=== PATIENT | male | born 1965 | race Hispanic/Latino ===

== ENCOUNTER 2017-12-02 11:01 | Observation (INO) | payer BC ==
[2017-12-02 11:20] VITALS: BMI 34.4
[2017-12-02] MEDS ORDERED: Sodium Chloride 0.9% 1,000 ML IV STA (12:03)
--- NOTE | 2017-12-02 12:07 | ED PDOC ---
HPI: General Adult Time Seen by Provider: 12/02/17 11:51 Chief Complaint (Nursing): Dizziness/Lightheaded Chief Complaint (Provider): abnormal electrolytes History Per: Patient History/Exam Limitations: no limitations Onset/Duration Of Symptoms: Days (today) Additional Complaint(s): Pt. had syncope after dizziness yesterday. He went to the PCP who saw he had afib. Pt. then went to Dr. Mari, cardiology. He stopped pt. bystolic, valsartan, and asa. He started pt. on metoprolol, chlorthalidone, and eliquis. Pt. started the meds yesterday. Here today as the parlor maid saw pt. blood work showed his sodium was low and he needed IV fluids. Pt. currently has no complaints. No current dizziness, chest pain, dyspnea, weakness, palpitations, leg pain, numbness, tingles. Past Medical History Reviewed: Nursing Documentation, Vital Signs Vital Signs: Last Vital Signs Temp 98.1 F 12/02/17 11:20 Pulse 103 H 12/02/17 11:20 Resp 17 12/02/17 11:20 BP 112/84 12/02/17 11:20 Pulse Ox 97 12/02/17 12:14 - Medical History PMH: HTN Other PMH: afib dx yesterday - Surgical History Surgical History: No Surg Hx - Family History Family History: States: Unknown Family Hx - Allergies Allergies/Adverse Reactions: Allergies Allergy/AdvReac Type Severity Reaction Status Date / Time No Known Allergies Allergy Verified 12/02/17 12:02 Review of Systems ROS Statement: Except As Marked, All Systems Reviewed And Found Negative Neurological: Positive for: Dizziness (gone now) Physical Exam - Reviewed Nursing Documentation Reviewed: Yes Vital Signs Reviewed: Yes - Physical Exam Appears: Positive for: Non-toxic, No Acute Distress Head Exam: Positive for: ATRAUMATIC, NORMAL INSPECTION, NORMOCEPHALIC Skin: Positive for: Normal Color, Warm, DRY Eye Exam: Positive for: EOMI, Normal appearance, PERRL ENT: Positive for: Normal ENT Inspection Neck: Positive for: Normal, Painless ROM Cardiovascular/Chest: Positive for: Chest Non Tender, Irregularly Irregular ( controlled rate). Negative for: Edema Respiratory: Positive for: CNT, Normal Breath Sounds Gastrointestinal/Abdominal: Positive for: Normal Exam, Soft. Negative for: Tenderness Back: Positive for: Normal Inspection. Negative for: L CVA Tenderness, R CVA Tenderness Extremity: Positive for: Normal ROM. Negative for: Tenderness, Pedal Edema Neurologic/Psych: Positive for: Alert, rehanger II-XII, Oriented. Negative for: Motor/Sensory Deficits, Aphasia, Facial Droop - Laboratory Results Result Diagrams: 12/02/17 12:20 12/02/17 12:20 Interpretation Of Abn Labs: 126 na, 85 chloride - ECG ECG: Positive for: Interpreted By Me, Viewed By Me (a) ECG Rhythm: Positive for: Atrial Fibrillation O2 Sat by Pulse Oximetry: 97 Pulse Ox Interpretation: Normal - Progress ED Course And Treament: 1353: Stable. Spoke with Dr. Mari. States he wants pt. admitted as he is an alcoholic and has afib with electrolyte abnormalities. Pt. agrees. Will give cardizem to decrease HR below 100. 1421: Spoke with Dr. Jaeger. Will admit tele obs and give further orders when pt. reaches floor. Disposition - Clinical Impression Clinical Impression: Afib, Hyponatremia, Elevated liver enzymes - Patient ED Disposition Is Patient to be Admitted: Yes Counseled Patient/Family Regarding: Studies Performed, Diagnosis - Disposition Disposition Time: 14:00 Condition: FAIR - Pt Status Changed To: Hospital Disposition Of: Observation - POA Present On Arrival: None
[2017-12-02 12:32] LABS: BASO % 0.6 % (0.0-2.0); EOS # 0.1 K/uL (0.0-0.7); EOS % 0.8 % (0.0-4.0); HEMOGLOBIN 14.7 g/dL (12.0-18.0); LYMPH # 0.7 K/uL (1.0-4.3); MEAN CELL VOLUME 99.3 fl (80.0-94.0); MEAN CORPUSCULAR HGB CONC 35.2 g/dL (33.0-37.0); MEAN PLATELET VOLUME 9.2 fl (7.2-11.7); MONO # 0.6 K/uL (0.0-0.8); MONO % 8.7 % (0.0-10.0); NEUT # 5.3 K/uL (1.8-7.0); NEUT % 78.9 % (50.0-75.0); NRBC % 0.1 % (0.0-0.0); RBC 4.2 Mil/uL (4.40-5.90); RED CELL DISTRIBUTION WIDTH 12.6 % (11.5-14.5); WHITE BLOOD COUNT 6.8 K/uL (4.8-10.8)
[2017-12-02 12:43] LABS: INR 1.2; PROTHROMBIN TIME 13.5 Seconds (9.8-13.1)
[2017-12-02 12:44] LABS: ALB/GLOB RATIO 1.2 (1.0-2.1); ALBUMIN 4.7 g/dL (3.5-5.0); ALT/SGPT 183 U/L (21-72); AST/SGOT 398 U/L (17-59); BLOOD UREA NITROGEN 16 mg/dl (9-20); CALCIUM 10.2 mg/dL (8.4-10.2); GFR AFRICAN-AMERICAN > 60; GFR NON-AFRICAN AMERICAN > 60
[2017-12-02 12:46] LABS: PARTIAL THROMBOPLASTIN TIME 37.3 Seconds
[2017-12-02] MEDS ORDERED: Multivitamin (MVI) 10 ML, Folic Acid 1 MG, Thiamine 100 MG in Dextrose 5%/0.45% NS 1,00... IV ONE (13:54)
--- NOTE | 2017-12-02 15:21 | CARD ---
APPROVED REPORT Date of service: 12/02/2017 EKG Measurement Heart [id number] <Conclusion> Atrial fibrillation with rapid ventricular response Nonspecific ST abnormality Abnormal ECG
--- NOTE | 2017-12-02 16:38 | CP.PCM.HP ---
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 HE HAS A HISTORY OF HYPERTENSION AND CHRONIC ALCOHOL USE. Present on Admission - Present on Admission Any Indicators Present on Admission: Yes Past Patient History - Past Social History Smoking Status: Never Smoked - CARDIAC Hx Hypertension: Yes - PSYCHIATRIC Hx Substance Use: No - SURGICAL HISTORY Hx Surgeries: No Meds Allergies/Adverse Reactions: Allergies Allergy/AdvReac Type Severity Reaction Status Date / Time No Known Allergies Allergy Verified 12/02/17 12:02 Physical Exam - Constitutional Appears: No Acute Distress - Head Exam Head Exam: ATRAUMATIC, NORMAL INSPECTION, NORMOCEPHALIC - Eye Exam Eye Exam: EOMI, Normal appearance, PERRL Pupil Exam: NORMAL ACCOMODATION, PERRL - ENT Exam ENT Exam: Mucous Membranes Moist, Normal Exam - Neck Exam Neck exam: Positive for: Normal Inspection - Respiratory Exam Respiratory Exam: Clear to Auscultation Bilateral, NORMAL BREATHING PATTERN - Cardiovascular Exam Cardiovascular Exam: Irregular Rhythm - GI/Abdominal Exam GI & Abdominal Exam: Normal Bowel Sounds, Soft. absent: Tenderness - Rectal Exam Rectal Exam: NORMAL INSPECTION - Extremities Exam Extremities exam: Positive for: normal inspection - Back Exam Back exam: NORMAL INSPECTION - Neurological Exam Neurological exam: Alert, CN II-XII Intact, Normal Gait, Oriented x3, Reflexes Normal - Psychiatric Exam Psychiatric exam: Normal Affect, Normal Mood - Skin Skin Exam: Dry, Intact, Normal Color, Warm Results - Vital Signs Recent Vital Signs: Last Vital Signs Temp 98.1 F 12/02/17 11:20 Pulse 104 H 12/02/17 14:33 Resp 19 12/02/17 14:33 BP 147/89 12/02/17 14:33 Pulse Ox 98 12/02/17 14:33 - Labs Result Diagrams: 12/02/17 12:20 12/02/17 12:20 Labs: Laboratory Results - last 24 hr 12/02/17 12/02/17 12/02/17 12:00 12:20 12:20 WBC 6.8 RBC 4.20 L Hgb 14.7 Hct 41.7 MCV 99.3 H MCH 35.0 H MCHC 35.2 RDW 12.6 Plt Count 174 MPV 9.2 Neut % (Auto) 78.9 H Lymph % (Auto) 11.[address] [place] % (Auto) 8.7 Eos % (Auto) 0.8 Baso % (Auto) 0.6 Neut # (Auto) 5.3 Lymph # (Auto) 0.[address] [place] # (Auto) 0.6 Eos # (Auto) 0.1 Baso # (Auto) 0.0 PT INR APTT Sodium 126 L Potassium 4.6 Chloride 85 L Carbon Dioxide 26 Anion Gap 20 BUN 16 Creatinine 1.2 Est GFR ( Amer) > 60 Est GFR (Non-Af Amer) > 60 Random Glucose 98 Calcium 10.2 Phosphorus 3.7 Magnesium 1.2 L Total Bilirubin 2.1 H AST 398 H ALT 183 H Alkaline Phosphatase 119 Troponin I < 0.0120 Total Protein 8.6 H Albumin 4.7 Globulin 3.9 Albumin/Globulin Ratio 1.2 Alcohol, Quantitative < 10 Cancelled 12/02/17 12:20 WBC RBC Hgb Hct MCV MCH MCHC RDW Plt Count MPV Neut % (Auto) Lymph % (Auto) [place] % (Auto) Eos % (Auto) Baso % (Auto) Neut # (Auto) Lymph # (Auto) [place] # (Auto) Eos # (Auto) Baso # (Auto) PT 13.5 H INR 1.2 APTT 37.3 Sodium Potassium Chloride Carbon Dioxide Anion Gap BUN Creatinine Est GFR ( Amer) Est GFR (Non-Af Amer) Random Glucose Calcium Phosphorus Magnesium Total Bilirubin AST ALT Alkaline Phosphatase Troponin I Total Protein Albumin Globulin Albumin/Globulin Ratio Alcohol, Quantitative Assessment & Plan - Assessment and Plan (Free Text) Assessment: NEW ONSET ATRIAL FIBRILLATION R/O ACS PROBABLE ALCOHOLIC LIVER DISEASE HYPERTENSION HYPONATREMIA Plan: CONTINUE RX ORDERED CARDIOLOGY EVAL - Date & Time Date: 12/02/17 Time: 16:42
[2017-12-02] MEDS: Metoprolol Succinate 50 mg XL Tab PO SCH (17:25)
[2017-12-02 18:14] LABS: T4 9.12 ug/dl (5.5-11.0)
[2017-12-02 21:22] LABS: HEPATITIS B SURFACE AG Negative (NEGATIVE)
[2017-12-02 21:27] LABS: HEPATITIS A IGM NEGATIVE (NEGATIVE); HEPATITIS B CORE AB NEGATIVE (NEGATIVE)
[2017-12-02 21:39] LABS: HEPATITIS C ANTIBODY NEGATIVE (NEGATIVE)
[2017-12-03 05:37] LABS: BASO # 0.1 K/uL (0.0-0.2); BASO % 1.3 % (0.0-2.0); EOS # 0.2 K/uL (0.0-0.7); EOS % 3.1 % (0.0-4.0); HEMOGLOBIN 13.4 g/dL (12.0-18.0); LYMPH % 19.1 % (20.0-40.0); MEAN CELL VOLUME 99.8 fl (80.0-94.0); MEAN CORPUSCULAR HEMOGLOBIN 35.2 pg (27.0-31.0); MEAN CORPUSCULAR HGB CONC 35.2 g/dL (33.0-37.0); MEAN PLATELET VOLUME 9.5 fl (7.2-11.7); MONO # 0.5 K/uL (0.0-0.8); MONO % 9.8 % (0.0-10.0); NEUT # 3.4 K/uL (1.8-7.0); NEUT % 66.7 % (50.0-75.0); RBC 3.8 Mil/uL (4.40-5.90); RED CELL DISTRIBUTION WIDTH 12.6 % (11.5-14.5); WHITE BLOOD COUNT 5.1 K/uL (4.8-10.8)
[2017-12-03 05:49] LABS: BLOOD UREA NITROGEN 14 mg/dl (9-20); CALCIUM 9.5 mg/dL (8.4-10.2); GFR AFRICAN-AMERICAN > 60; GFR NON-AFRICAN AMERICAN > 60; HDL CHOLESTEROL 54 MG/DL (30-70)
[2017-12-03 06:00] LABS: LDL CHOLESTEROL 106 mg/dL (0-129)
--- NOTE | 2017-12-03 09:33 | CP.PCM.PN ---
Subjective - Date & Time of Evaluation Date of Evaluation: 12/03/17 Time of Evaluation: 09:36 - Subjective Subjective: C/O ABOUT BEING IN HOSPITA AND HAVING HIS VITALS CHECKED WANTS TO GO HOME AND CONTINUE RX OUTPT HE IS ADVISED TO STAY IN HOSPITAL TO BETTER TREAT ATRIAL FIB AND IMPROVE HYPONATREMIA AND HEPATIC FUNCTION HE UNDERSTANDS THAT HE CAN SIGN OUT AMA IF HE DOES NOT WANT TO STAY IN HOSPITAL Objective - Vital Signs/Intake and Output Vital Signs (last 24 hours): Temp Pulse Resp BP Pulse Ox 97.9 F 104 H 20 116/79 98 12/03/17 08:00 12/03/17 08:00 12/03/17 08:00 12/03/17 08:00 12/03/17 08:00 - Medications Medications: Current Medications Apixaban (Eliquis) 5 mg PO BID [facility] PRN Reason: Protocol Last Admin: 12/02/17 17:25 Dose: 5 mg Aspirin (Aspirin Chewable) 81 mg PO DAILY [facility] Metoprolol Succinate (Toprol Xl) 50 mg PO BID [facility] Last Admin: 12/02/17 17:25 Dose: 50 mg Trazodone HCl (Desyrel) 100 mg PO HS [facility] Last Admin: 12/02/17 22:08 Dose: 100 mg - Labs Labs: 12/03/17 04:20 12/03/17 04:20 PT 13.5 Seconds (9.8-13.1) H 12/02/17 12:20 INR 1.2 12/02/17 12:20 APTT 37.3 Seconds 12/02/17 12:20 - Constitutional Appears: No Acute Distress - Head Exam Head Exam: ATRAUMATIC, NORMAL INSPECTION, NORMOCEPHALIC - Eye Exam Eye Exam: EOMI, Normal appearance, PERRL Pupil Exam: NORMAL ACCOMODATION, PERRL - ENT Exam ENT Exam: Mucous Membranes Moist, Normal Exam - Neck Exam Neck Exam: Full ROM, Normal Inspection. absent: Lymphadenopathy - Respiratory Exam Respiratory Exam: Clear to Ausculation Bilateral, NORMAL BREATHING PATTERN - Cardiovascular Exam Cardiovascular Exam: Irregular Rhythm, +S1, +S2. absent: Murmur - GI/Abdominal Exam GI & Abdominal Exam: Soft, Normal Bowel Sounds. absent: Tenderness - Rectal Exam Rectal Exam: NORMAL INSPECTION - Extremities Exam Extremities Exam: Full ROM, Normal Capillary Refill, Normal Inspection. absent : Joint Swelling, Pedal Edema - Back Exam Back Exam: NORMAL INSPECTION - Neurological Exam Neurological Exam: Alert, Awake, CN II-XII Intact, Normal Gait, Oriented x3 - Psychiatric Exam Psychiatric exam: Normal Affect, Normal Mood - Skin Skin Exam: Dry, Intact, Normal Color, Warm Assessment and Plan - Assessment and Plan (Free Text) Assessment: NEW ONSET ATRIAL FIBRILLATION--IMPROVING HYPONATREMIA PROBABLE ALCOHOLIC LIVER DISEASE Plan: CARDIAC EVALUATION IV NACL ANTICOAGULATION AND BETA KITTY THERAPY ADVISED TO STAY IN HOSPITAL UNTIL MEDICALLY CLEARED
[2017-12-03] MEDS ORDERED: Sodium Chloride 0.9% 1,000 ML IV SCH (09:45)
--- NOTE | 2017-12-03 10:51 | CP.PCM.CON ---
History of Present Illness - History of Present Illness History of Present Illness: This 52-year-old man came to the hospital after he was instructed by his spinner tender who had seen him the day before for atrial fibrillation. The patient has a long history of hypertension and has taken antihypertensives for approximately 13 years. He has gained approximately 60 pounds over this time and now weighs 240 pounds. He has never been a smoker or diabetic and had never experienced any palpitations or chest pains. On the day of his hospitalization the patient gives history of having fainted at work went to see his primary care doctor who referred him promptly to a spinner tender. The spinner tender ordered a beta blockade and told him that he had atrial fibrillation. The patient denies any palpitations or sudden shortness of breath indicating congestive heart failure. Physical examination shows an overweight middle aged man who is alert awake and coherent. Sitting up in a chair eating his breakfast. Can carry on a conversation. Telemetry shows his average heart rate to be 110-120 bpm. His jugular venous pressure was not elevated and there was no edema over his lower extremity. The pedal pulses were well felt. His blood pressure was 122/74 mmHg. His extremities were warm and his nailbeds were pink. There was no central or peripheral cyanosis. There was no clubbing. The apex was not palpable. The first and second heart sounds are normal there was no murmur or gallop. There were no rales. His abdomen was soft and liver and spleen are not palpable. His electric cardiac gram showed atrial flutter fibrillation with a heart rate which was fast. There were no Q waves. His electric cardiac gram this morning continues to show atrial flutter fibrillation. An echocardiogram off 10 this morning shows a preserved left ventricular systolic function with a mild tricuspid regurgitation. His calculated pulmonary artery systolic pressure was 32 mmHg. His left atrial size was mildly enlarged. His lab data shows a sodium level of 126 mg/L at admission which after infusion of normal saline is 128 mg/ L this morning. His BUN/creatinine were normal. His liver enzymes are significantly elevated. The patient tells me that his ferritin level drawn the day before at his primary care physician's office exceeded 2500 g. Impression: Recent onset of atrial fibrillation with a syncopal episode. Hyponatremia. Long history of hypertension and exogenous obesity with possible obstructive sleep apnea. (Possible hemochromatosis) I have discussed his case with the spinner tender who saw him on the day of admission. The patient has been started on intravenous normal saline with gradual resolution of his hyponatremia. I have increased his dose of metoprolol in an attempt to slow his heart rate down. His spinner tender tells me that he suspects possible chronic ETOH abuse as the reason for his abnormal liver tests and atrial fibrillation. The patient is scheduled to undergo a sleep study. Past Patient History - Past Medical History & Family History Past Medical History?: Yes - Past Social History Smoking Status: Never Smoked - CARDIAC Hx Cardiac Disorders: Yes - MUSCULOSKELETAL/RHEUMATOLOGICAL Hx Falls: No - PSYCHIATRIC Hx Substance Use: No - SURGICAL HISTORY Hx Surgeries: No Meds Allergies/Adverse Reactions: Allergies Allergy/AdvReac Type Severity Reaction Status Date / Time No Known Allergies Allergy Verified 12/02/17 12:02 - Medications Medications: Current Medications Apixaban (Eliquis) 5 mg PO BID JONY PRN Reason: Protocol Last Admin: 12/03/17 10:19 Dose: 5 mg Aspirin (Aspirin Chewable) 81 mg PO DAILY JONY Sodium Chloride (Sodium Chloride 0.9%) 1,000 mls @ 40 mls/hr IV .Q24H JONY Stop: 12/04/17 09:38 Last Admin: 12/03/17 10:23 Dose: 40 mls/hr Metoprolol Tartrate (Lopressor) 75 mg PO Q12 JONY Trazodone HCl (Desyrel) 100 mg PO HS JONY Last Admin: 12/02/17 22:08 Dose: 100 mg Zolpidem Tartrate (Ambien) 5 mg PO HS PRN PRN Reason: Insomnia Results - Vital Signs Recent Vital Signs: Last Vital Signs Temp 97.9 F 12/03/17 08:00 Pulse 104 H 12/03/17 08:00 Resp 20 12/03/17 08:00 BP 116/79 12/03/17 08:00 Pulse Ox 98 12/03/17 08:00 - Labs Result Diagrams: 12/03/17 04:20 12/03/17 04:20 Labs: Laboratory Results - last 24 hr 12/02/17 12/02/17 12/02/17 12:00 12:20 12:20 WBC 6.8 RBC 4.20 L Hgb 14.7 Hct 41.7 MCV 99.3 H MCH 35.0 H MCHC 35.2 RDW 12.6 Plt Count 174 MPV 9.2 Neut % (Auto) 78.9 H Lymph % (Auto) 11.0 L [place] % (Auto) 8.7 Eos % (Auto) 0.8 Baso % (Auto) 0.6 Neut # (Auto) 5.3 Lymph # (Auto) 0.7 L [place] # (Auto) 0.6 Eos # (Auto) 0.1 Baso # (Auto) 0.0 PT INR APTT Sodium 126 L Potassium 4.6 Chloride 85 L Carbon Dioxide 26 Anion Gap 20 BUN 16 Creatinine 1.2 Est GFR ( Amer) > 60 Est GFR (Non-Af Amer) > 60 Random Glucose 98 Calcium 10.2 Phosphorus 3.7 Magnesium 1.2 L Total Bilirubin 2.1 H AST 398 H ALT 183 H Alkaline Phosphatase 119 Troponin I < 0.0120 Total Protein 8.6 H Albumin 4.7 Globulin 3.9 Albumin/Globulin Ratio 1.2 Triglycerides Cholesterol LDL Cholesterol Direct HDL Cholesterol Thyroxine (T4) TSH 3rd Generation Alcohol, Quantitative < 10 Cancelled Hepatitis A IgM Ab Hep Bs Antigen Hep B Core IgM Ab Hepatitis C Antibody 12/02/17 12/02/17 12/02/17 12:20 17:22 17:22 WBC RBC Hgb Hct MCV MCH MCHC RDW Plt Count MPV Neut % (Auto) Lymph % (Auto) [place] % (Auto) Eos % (Auto) Baso % (Auto) Neut # (Auto) Lymph # (Auto) [place] # (Auto) Eos # (Auto) Baso # (Auto) PT 13.5 H INR 1.2 APTT 37.3 Sodium Potassium Chloride Carbon Dioxide Anion Gap BUN Creatinine Est GFR ( Amer) Est GFR (Non-Af Amer) Random Glucose Calcium Phosphorus Magnesium Total Bilirubin AST ALT Alkaline Phosphatase Troponin I < 0.0120 Total Protein Albumin Globulin Albumin/Globulin Ratio Triglycerides Cholesterol LDL Cholesterol Direct HDL Cholesterol Thyroxine (T4) 9.12 TSH 3rd Generation 4.09 Alcohol, Quantitative Hepatitis A IgM Ab Negative Hep Bs Antigen Negative Hep B Core IgM Ab Negative Hepatitis C Antibody Negative 12/03/17 12/03/17 04:20 04:20 WBC 5.1 RBC 3.80 L Hgb 13.4 Hct 38.0 MCV 99.8 H MCH 35.2 H MCHC 35.2 RDW 12.6 Plt Count 150 MPV 9.5 Neut % (Auto) 66.7 Lymph % (Auto) 19.1 L [place] % (Auto) 9.8 Eos % (Auto) 3.1 Baso % (Auto) 1.3 Neut # (Auto) 3.4 Lymph # (Auto) 1.0 [place] # (Auto) 0.5 Eos # (Auto) 0.2 Baso # (Auto) 0.1 PT INR APTT Sodium 128 L Potassium 4.0 Chloride 90 L Carbon Dioxide 26 Anion Gap 16 BUN 14 Creatinine 1.0 Est GFR ( Amer) > 60 Est GFR (Non-Af Amer) > 60 Random Glucose 87 Calcium 9.5 Phosphorus Magnesium Total Bilirubin AST ALT Alkaline Phosphatase Troponin I Total Protein Albumin Globulin Albumin/Globulin Ratio Triglycerides 95 Cholesterol 196 LDL Cholesterol Direct 106 HDL Cholesterol 54 Thyroxine (T4) TSH 3rd Generation Alcohol, Quantitative Hepatitis A IgM Ab Hep Bs Antigen Hep B Core IgM Ab Hepatitis C Antibody
[2017-12-03] MEDS: Metoprolol Succinate 50 mg XL Tab PO SCH (14:50)
--- NOTE | 2017-12-03 17:02 | CARD ---
APPROVED REPORT Date of service: 12/03/2017 EKG Measurement Heart [id number] <Conclusion> Atrial fibrillation with rapid ventricular response Abnormal ECG
[2017-12-03 23:52] VITALS: RESP 18
[2017-12-04 07:07] LABS: ALB/GLOB RATIO 1.2 (1.0-2.1); ALBUMIN 4.1 g/dL (3.5-5.0); ALT/SGPT 221 U/L (21-72); AST/SGOT 344 U/L (17-59); BILIRUBIN,DIRECT 0.7 mg/ml (0.0-0.4); BLOOD UREA NITROGEN 16 mg/dl (9-20); CALCIUM 9.4 mg/dL (8.4-10.2); GFR AFRICAN-AMERICAN > 60; GFR NON-AFRICAN AMERICAN > 60
--- NOTE | 2017-12-04 08:08 | CARD ---
APPROVED REPORT Date of service: 12/03/2017 EXAM: Two-dimensional and M-mode echocardiogram with Doppler and color Doppler. Other Information Quality : GoodRhythm : Tachycardia INDICATION Atrial Fibrillation 2D DIMENSIONS IVSd1.00 (0.7-1.1cm)LVDd3.94 (3.9-5.9cm) LVOT Diameter2.27 (1.8-2.4cm)PWd0.93 (0.7-1.1cm) IVSs1.22 (0.8-1.2cm)LVDs3.15 (2.5-4.0cm) FS (%) 19.9 %PWs1.53 (0.8-1.2cm) M-Mode DIMENSIONS Left Atrium (MM)4.76 (2.5-4.0cm)IVSd0.79 (0.7-1.1cm) Aortic Root3.71 (2.2-3.7cm)LVDd5.76 (4.0-5.6cm) Aortic Cusp Exc.2.25 (1.5-2.0cm)PWd0.89 (0.7-1.1cm) IVSs1.36 cmFS (%) 49 % LVDs2.94 (2.0-3.8cm)PWs1.69 cm Mitral Valve E/A ratio0.0 TDI E/Lateral E'0.0E/Medial E'0.0 Tricuspid Valve TR Peak [id number] [id number] Peak Gr.22mmHg [id number] LEFT VENTRICLE The left ventricle is normal size. There is normal left ventricular wall thickness. LV systolic function was normal. The Ejection Fraction is 65-70%. There is normal LV segmental wall motion. LV diastolic function could not be assesed due to A Fib. RIGHT VENTRICLE RV appeared mildly enlarged. The right ventricular systolic function is normal. ATRIA The left atrium size is normal. The right atrium is mildly dilated. AORTIC VALVE The aortic valve is normal in structure. No aortic regurgitation is present. There is no aortic valvular stenosis. MITRAL VALVE The mitral valve is normal in structure. There is no evidence of mitral valve prolapse. There is no mitral valve stenosis. There is no mitral valve regurgitation noted. TRICUSPID VALVE The tricuspid valve is normal in structure. Mild TR RV systolic pressure was 32 mm Hg PULMONIC VALVE The pulmonary valve is normal in structure. There is no pulmonic valvular regurgitation. GREAT VESSELS The aortic root is normal in size. The IVC was not visualized. PERICARDIAL EFFUSION There is a small circumferential pericardial effusion. <Conclusion> Patient had atrial fibrillation during this study. The left ventricle is normal size. There is normal left ventricular wall thickness. There is normal LV segmental wall motion. LV systolic function was normal. The Ejection Fraction is 65-70%. RV appeared mildly enlarged. The right atrium is mildly dilated. RV systolic pressure was 32 mm Hg
[2017-12-04 08:14] VITALS: BP 119/78; PULSE 94; TEMP 97.3; O2SAT 98
--- NOTE | 2017-12-04 09:25 | CP.PCM.PN ---
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 D/C for follow up Objective - Vital Signs/Intake and Output Vital Signs (last 24 hours): Temp Pulse Resp BP Pulse Ox 97.3 F L 94 H 18 119/78 98 12/04/17 08:13 12/04/17 08:13 12/04/17 08:13 12/04/17 08:13 12/04/17 08:13 - Medications Medications: Current Medications Apixaban (Eliquis) 5 mg PO BID JONY PRN Reason: Protocol Last Admin: 12/03/17 17:48 Dose: 5 mg Aspirin (Aspirin Chewable) 81 mg PO DAILY JONY Last Admin: 12/03/17 12:02 Dose: Not Given Metoprolol Tartrate (Lopressor) 75 mg PO Q12 JONY Last Admin: 12/03/17 21:43 Dose: 75 mg Trazodone HCl (Desyrel) 100 mg PO HS JONY Last Admin: 12/03/17 21:24 Dose: 100 mg Zolpidem Tartrate (Ambien) 5 mg PO HS PRN PRN Reason: Insomnia Last Admin: 12/04/17 00:08 Dose: 5 mg - Labs Labs: 12/03/17 04:20 12/04/17 05:35 PT 13.5 Seconds (9.8-13.1) H 12/02/17 12:20 INR 1.2 12/02/17 12:20 APTT 37.3 Seconds 12/02/17 12:20
--- NOTE | 2017-12-04 09:31 | CP.PCM.DIS ---
Provider - Provider Date of Admission: 12/02/17 14:20 Attending physician: Glenn Jaeger MD Time Spent in preparation of Discharge (in minutes): 35 Diagnosis - Discharge Diagnosis (1) Chronic alcohol use Status: Acute (2) Hypertension Status: Acute (3) Afib Status: Acute (4) Elevated liver enzymes Status: Acute (5) Hyponatremia Status: Acute Hospital Course - Lab Results Lab Results: Most Recent Lab Values WBC 5.1 K/uL (4.8-10.8) 12/03/17 04:20 RBC 3.80 Mil/uL (4.40-5.90) L 12/03/17 04:20 Hgb 13.4 g/dL (12.0-18.0) 12/03/17 04:20 Hct 38.0 % (35.0-51.0) 12/03/17 04:20 MCV 99.8 fl (80.0-94.0) H 12/03/17 04:20 MCH 35.2 pg (27.0-31.0) H 12/03/17 04:20 MCHC 35.2 g/dL (33.0-37.0) 12/03/17 04:20 RDW 12.6 % (11.5-14.5) 12/03/17 04:20 Plt Count 150 K/uL (130-400) 12/03/17 04:20 MPV 9.5 fl (7.2-11.7) 12/03/17 04:20 Neut % (Auto) 66.7 % (50.0-75.0) 12/03/17 04:20 Lymph % (Auto) 19.1 % (20.0-40.0) L 12/03/17 04:20 [place] % (Auto) 9.8 % (0.0-10.0) 12/03/17 04:20 Eos % (Auto) 3.1 % (0.0-4.0) 12/03/17 04:20 Baso % (Auto) 1.3 % (0.0-2.0) 12/03/17 04:20 Neut # (Auto) 3.4 K/uL (1.8-7.0) 12/03/17 04:20 Lymph # (Auto) 1.0 K/uL (1.0-4.3) 12/03/17 04:20 [place] # (Auto) 0.5 K/uL (0.0-0.8) 12/03/17 04:20 Eos # (Auto) 0.2 K/uL (0.0-0.7) 12/03/17 04:20 Baso # (Auto) 0.1 K/uL (0.0-0.2) 12/03/17 04:20 PT 13.5 Seconds (9.8-13.1) H 12/02/17 12:20 INR 1.2 12/02/17 12:20 APTT 37.3 Seconds 12/02/17 12:20 Sodium 131 mmol/l (132-148) L 12/04/17 05:35 Potassium 4.4 MMOL/L (3.6-5.0) 12/04/17 05:35 Chloride 92 mmol/L (98-107) L 12/04/17 05:35 Carbon Dioxide 30 mmol/L (22-30) 12/04/17 05:35 Anion Gap 13 (10-20) 12/04/17 05:35 BUN 16 mg/dl (9-20) 12/04/17 05:35 Creatinine 1.0 mg/dl (0.8-1.5) 12/04/17 05:35 Est GFR ( Amer) > 60 12/04/17 05:35 Est GFR (Non-Af Amer) > 60 12/04/17 05:35 Random Glucose 87 mg/dL (75-110) 12/04/17 05:35 Calcium 9.4 mg/dL (8.4-10.2) 12/04/17 05:35 Phosphorus 3.7 mg/dl (2.5-4.5) 12/02/17 12:20 Magnesium 1.2 MG/DL (1.6-2.3) L 12/02/17 12:20 Ferritin 1650.0 ng/Ml (17.9-464) H 12/03/17 10:50 Total Bilirubin 2.0 mg/dl (0.2-1.3) H 12/04/17 05:35 Direct Bilirubin 0.7 mg/ml (0.0-0.4) H 12/04/17 05:35 AST 344 U/L (17-59) H 12/04/17 05:35 ALT 221 U/L (21-72) H D 12/04/17 05:35 Alkaline Phosphatase 108 U/L (38-126) 12/04/17 05:35 Troponin I < 0.0120 ng/mL (0.00-0.120) 12/02/17 17:22 Total Protein 7.4 G/DL (6.3-8.2) 12/04/17 05:35 Albumin 4.1 g/dL (3.5-5.0) 12/04/17 05:35 Globulin 3.3 gm/dL (2.2-3.9) 12/04/17 05:35 Albumin/Globulin Ratio 1.2 (1.0-2.1) 12/04/17 05:35 Triglycerides 95 mg/DL (0-149) 12/03/17 04:20 Cholesterol 196 mg/dL (0-199) 12/03/17 04:20 LDL Cholesterol Direct 106 mg/dL (0-129) 12/03/17 04:20 HDL Cholesterol 54 MG/DL (30-70) 12/03/17 04:20 Thyroxine (T4) 9.12 ug/dl (5.5-11.0) 12/02/17 17:22 TSH 3rd Generation 4.09 mIU/ML (0.46-4.68) 12/02/17 17:22 Alcohol, Quantitative Cancelled 12/02/17 12:20 Hepatitis A IgM Ab Negative (NEGATIVE) 12/02/17 17:22 Hep Bs Antigen Negative (NEGATIVE) 12/02/17 17:22 Hep B Core IgM Ab Negative (NEGATIVE) 12/02/17 17:22 Hepatitis C Antibody Negative (NEGATIVE) 12/02/17 17:22 - Hospital Course Hospital Course: CLINICALLY IMPROVED ATRIAL FIB WITH CONTROLLED VENTRICULAR RESPONSE HYPONATREMIA IMPROVED Discharge Exam - Head Exam Head Exam: ATRAUMATIC, NORMAL INSPECTION, NORMOCEPHALIC - Eye Exam Eye Exam: EOMI, Normal appearance, PERRL Pupil Exam: NORMAL ACCOMODATION, PERRL - Cardiovascular Exam Cardiovascular Exam: Irregular Rhythm - GI/Abdominal Exam GI & Abdominal Exam: Normal Bowel Sounds - Rectal Exam Rectal Exam: NORMAL INSPECTION - Neurological Exam Neurological exam: Alert, CN II-XII Intact, Normal Gait, Oriented x3, Reflexes Normal - Psychiatric Exam Psychiatric exam: Normal Affect, Normal Mood - Skin Skin Exam: Dry, Intact, Normal Color, Warm Discharge Plan - Follow Up Plan Condition: FAIR Disposition: HOME/ ROUTINE Patient education suggested?: Yes Additional Instructions: DISCHARGE TODAY FOLLOW UP WITH PMD AND RESIDENTIAL PROGRAM WORKER ALCOHOL ABSTINENCE ADVISED
== END 2017-12-04 10:40 | disposition home or self-care (01) ==
LOC: H.ER 11:01 → H.ERHOLD 14:20 → H.TEL 17:28
PROVIDERS: ADMIT Internal Medicine Pulmonary Disease; ATTEND Internal Medicine Pulmonary Disease
DX: I48.91 Unspecified atrial fibrillation (principal); I48.92 Unspecified atrial flutter; E87.1 Hypo-osmolality and hyponatremia; K70.9 Alcoholic liver disease, unspecified; F10.10 Alcohol abuse, uncomplicated; E66.09 Other obesity due to excess calories; Z68.34 Body mass index [BMI] 34.0-34.9, adult; I10 Essential (primary) hypertension; R74.8 Abnormal levels of other serum enzymes
CPT/HCPCS: 36415; 80048; 80053; 80061; 80074; 80076; 82728; 83735; 84100; 84436; 84443; 84484; 85025; 85610; 85730; 93005; 93306; 96374; 99285; G0378; G0480; J3411; J7030; J7042